=== PATIENT | female | born 1945 | race Hispanic/Latino ===

== ENCOUNTER 2018-12-13 11:00 | Day surgery (SDC) | payer MEDICARE ==
[~2018-12-13 11:00] MED LIST: IOPIDINE ONE; MYDRIACYL ONE; NEOFRIN ONE
[2018-12-13] MEDS ORDERED: IOPIDINE OD ONE (11:25)
[2018-12-13] MEDS ORDERED: MYDRIACYL OD ONE (11:25)
[2018-12-13] MEDS ORDERED: NEOFRIN OD ONE (11:25)
[2018-12-13 13:08] VITALS: BP 147/73
[2018-12-13] MEDS ORDERED: IOPIDINE ONE ×2 (14:08→14:14)
[2018-12-13] MEDS ORDERED: MYDRIACYL ONE ×2 (14:08→14:14)
[2018-12-13] MEDS ORDERED: NEOFRIN ONE ×2 (14:08→14:18)
== END 2018-12-13 11:01 | disposition home or self-care (01) ==
LOC: OR 11:00
PROVIDERS: ATTEND Specialist
DX: H26.491 Other secondary cataract, right eye (principal); G43.909 Migraine, unspecified, not intractable, without status migrainosus; E78.00 Pure hypercholesterolemia, unspecified; I10 Essential (primary) hypertension; K21.9 Gastro-esophageal reflux disease without esophagitis; Z96.651 Presence of right artificial knee joint; Z79.899 Other long term (current) drug therapy; Z98.41 Cataract extraction status, right eye; Z90.49 Acquired absence of other specified parts of digestive tract; Z98.42 Cataract extraction status, left eye; Z98.890 Other specified postprocedural states; Z88.8 Allergy status to other drugs, medicaments and biological substances

== ENCOUNTER 2018-12-27 11:57 | Day surgery (SDC) | payer MEDICARE ==
[2018-12-27] MEDS ORDERED: MYDRIACYL OS ONE (12:12)
[2018-12-27] MEDS ORDERED: NEOFRIN OS ONE (12:12)
[2018-12-27] MEDS ORDERED: IOPIDINE OS ONE ×2 (12:12→13:14)
[2018-12-27 13:17] VITALS: BP 144/84
== END 2018-12-27 13:16 | disposition home or self-care (01) ==
LOC: OR 11:57
PROVIDERS: ATTEND Specialist
DX: H26.492 Other secondary cataract, left eye (principal); G43.909 Migraine, unspecified, not intractable, without status migrainosus; E78.00 Pure hypercholesterolemia, unspecified; I10 Essential (primary) hypertension; K21.9 Gastro-esophageal reflux disease without esophagitis; Z79.899 Other long term (current) drug therapy; Z98.41 Cataract extraction status, right eye; Z98.42 Cataract extraction status, left eye; Z98.890 Other specified postprocedural states; Z96.651 Presence of right artificial knee joint; Z88.8 Allergy status to other drugs, medicaments and biological substances